=== PATIENT | female | born 1960 | race Caucasian/White ===

== ENCOUNTER → 2017-05-17 10:49 | Outpatient (CLI) | payer SELFPAY ==
[2017-05-17 14:32] LABS: Hemoglobin A1C 5.6 % (0.0-7.0)
== END ==
PROVIDERS: PCP Emergency Medicine; Visit Provider Emergency Medicine
DX: E11.9 Type 2 diabetes mellitus without complications (principal)
CPT/HCPCS: 36415; 83036

== ENCOUNTER 2025-01-29 11:25 | Outpatient (CLI) | payer MEDICARE, OTHER, SELFPAY ==
--- OUTSIDE RECORDS SUMMARY | 2024-12-03 13:00 | XMS_ITS | Encounter Summary ---
Author Organization [employer] ([place], [place], [place], [place], [place]) Address [address] [place] [address] Care Team Providers Care Ancient Art Curator Name Role Phone Unavailable Primary Care Provider Unavailabl e Reason for Visit * Consultation (Routine) - Authorized Specialty Diagnoses / Procedures Referred By Bre t Referred To Contact Physical Therapy Diagnoses Right shoulder pain Spike Avila MD [address] [facility] [address] [place] [address] Phone: tel: fax: Referral ID Status Reason Start Date Expiration Date Visits Requested Visits Authorized [id number] Authorized Specialty Services Required 10/22/2024 02/11/2025 99 99 Encounter Details Date Type Department Care Team (Late st Contact Info) Description 12/03/2024 2:00 PM EDT Treatment [facility] OP Physical Therapy [address] [place] [address] Vic Rodriguez, PT Right shoulder pain, unspecified chronicity (Primary Dx) Social History Tobacco Use Types Packs/Day Years Used Date Smoking Tobacco: Never Assessed Comments Unknown Sex and Gender Information Value Date Recorded Sex Assigned at Not on file Legal Sex Female 3:13 PM CDT Gender Identity Not on file Sexual Orientation Not on file documented as of this encounter Progress Notes * Vic Rodriguez PT - 12/03/2024 2:00 PM EDT Images from the original note were not included. Outpatient Physical Therapy Treatment Note 12/03/2024 Time In: 1352 Time Out: 1438 Komal Albert 1960 64 y.o. 1. Right shoulder pain, unspecified chronicity Referring Physician: Spike Avila MD Insurance: Payor: MEDICARE / Plan: MEDICARE PART A B / Product Type: *No Product type* / SUBJECTIVE Patient reports she has no pain currently. She also notes she is continuing to see good improvements in R shoulder function such as washing her hair and brushing her teeth without significant pain. Pain: 0/10 OBJECTIVE INTERVENTIONS Therapeutic Exercise Sets x Repetitions Weight/Resistance Cues/Comments HEP Progress Note Due: 12/17/2024 Pulleys 2'/2' Standing Wand AAROM 2 min Flex/abd/ER [x] Ball Rollouts 2'/2' Flex/abd [] Table Slides 2 min HEP Flex [x] Supine Wand AAROM 2 min ER/flex [x] Bench Press w Wand 2 min 1# Step Aways 5 x 10 sec [] Ball Walks up the Wall 2 x 5 Small blue ball [] Landmine Press 2 min Flex [] Supine Snow [place]sgood 2 x 10 [] ASSESSMENT Patient completed exercises to improve R shoulder mobility. Therex was progressed by adding supine snow angels for strengthening in the abduction plane through gravity for increased shoulder ROM. Shenoted she had increased pain at the 90 degree point and was instructed to stay below this point. She tolerated overall treatment with mild difficulty and minimal reports of increased pain. She took rest breaks throughout the session as needed due to fatigue. Will continue to progress as tolerated. Patient will continue to benefit from skilled physical therapy to improve mobility, strength and overall function. PLAN Interventions: Continue Therapeutic Exercise (03176) Prognosis: Good Patient requires follow-up: Yes Total Treatment (min): 46' Timed Treatment (min): Therapeutic Exercise (66070) 46 minutes Electronically signed: Vic Rodriguez PT 12/03/2024, 4:43 PM documented in this encounter Plan of Treatment Not on file documented as of this encounter Visit Diagnoses Diagnosis Right shoulder pain, unspecified chronicity- Primary documented in this encounter
--- OUTSIDE RECORDS SUMMARY | 2024-12-12 12:00 | XMS_ITS | Encounter Summary ---
Author Organization [employer] ([place], [place], [place], [place], [place]) Address [address] [place] [address] Care Team Providers Care Molded Candles Wicker Name Role Phone Unavailable Primary Care Provider Unavailabl e Reason for Visit * Consultation (Routine) - Authorized Specialty Diagnoses / Procedures Referred By Bre t Referred To Contact Physical Therapy Diagnoses Right shoulder pain Spike Avila MD [address] [facility] [address] [place] [address] Phone: tel: fax: Referral ID Status Reason Start Date Expiration Date Visits Requested Visits Authorized [id number] Authorized Specialty Services Required 10/22/2024 02/11/2025 99 99 Encounter Details Date Type Department Care Team (Late st Contact Info) Description 12/12/2024 1:00 PM EDT Treatment [facility] OP Physical Therapy [address] [place] [address] Vic Rodriguez, PT Right shoulder pain, unspecified [...] Progress Notes * Vic Rodriguez PT - 12/12/2024 1:00 PM EDT Images from the original note were not included. Outpatient Physical Therapy Treatment Note 12/12/2024 Time In: 1302 Time Out: 1342 Komal Albert 1960 64 y.o. 1. Right shoulder pain, unspecified chronicity Referring Physician: Spike Avila MD Insurance: Payor: MEDICARE / Plan: MEDICARE PART A B / Product Type: *No Product type* / SUBJECTIVE Patient reports she is doing well today. She goes back for a follow up with the surgeon on . Pain: 0/10 OBJECTIVE INTERVENTIONS Therapeutic Exercise Sets x Repetitions Weight/Resistance Cues/Comments HEP Progress Note Due: 12/17/2024 Pulleys 2'/2' Standing Wand AAROM 2 min Flex/abd/ER [x] Ball Rollouts 2'/2' Flex/abd [] Table Slides 2 min HEP only Flex [x] Supine Wand AAROM 2 min 1# ER/flex [x] Bench Press w Wand 2 min 1# Step Aways 5 x 10 sec [] Ball Walks up the Wall 2 x 5 Small blue ball [] Landmine Press 2 min 1# Flex [] Supine Snow [place] 2 x 10 [] ASSESSMENT Patient completed exercises to improve R shoulder mobility. Therex was progressed by adding resistance for the landmine press and for supine wand AAROM for shoulder strengthening. She did much betterwith supine snow angels this date compared to last session as these were less painful. She tolerated overall treatment with mild difficulty and minimal reports of increased pain. She took rest breaksthroughout the session as needed due to fatigue and noted her shoulder feeling achy at the end of the session. Will continue to progress as tolerated. Patient will continue to benefit from skilled physical therapy to improve mobility, strength and overall function. PLAN Interventions: Continue Therapeutic Exercise (92102) Prognosis: Good Patient requires follow-up: Yes Total Treatment (min): 40' Timed Treatment (min): Therapeutic Exercise (72079) 40 minutes Electronically signed: Vic Rodriguez PT 12/12/2024, 1:43 PM documented in this encounter Plan of Treatment Not on file documented as of this encounter Visit Diagnoses Diagnosis Right shoulder pain, unspecified chronicity- Primary documented in this encounter
--- OUTSIDE RECORDS SUMMARY | 2024-12-19 14:30 | XMS_ITS | Encounter Summary ---
Author Organization [employer] ([place], [place], [place], [place], [place]) Address [address] [place] [address] Care Team Providers Care Whip Operator Name Role Phone Unavailable Primary Care Provider Unavailabl e Reason for Visit * Consultation (Routine) - Authorized Specialty Diagnoses / Procedures Referred By Bre t Referred To Contact Physical Therapy Diagnoses Right shoulder pain Spike Avila MD [address] [facility] [address] [place] [address] Phone: tel: fax: Referral ID Status Reason Start Date Expiration Date Visits Requested Visits Authorized [id number] Authorized Specialty Services Required 10/22/2024 02/11/2025 99 99 Encounter Details Date Type Department Care Team (Late st Contact Info) Description 12/19/2024 2:30 PM EST Treatment [facility] OP Physical Therapy [address] [place] [address] Vic Rodriguez, PT Right shoulder pain, unspecified [...] Progress Notes * Vic Rodriguez PT - 12/19/2024 2:30 PM EST Images from the original note were not included. Outpatient Physical Therapy Progress Note 12/19/2024 Time In: 1435 Time Out: 1519 Komal Albert 1960 64 y.o. 1. Right shoulder pain, unspecified chronicity Referring Provider: Spike Avila MD Insurance: Payor: MEDICARE / Plan: MEDICARE PART A B / Product Type: *No Product type* / SUBJECTIVE Patient reports her shoulder is a little achy today, possibly due to lifting and moving some items at [employer] this week. She goes to the MD for a follow up next week. Pain: 5-6/10 Symptoms since onset: Improved OBJECTIVE Test/Measurements Shoulder ROM (degrees) LEFT RIGHT Flexion 156 85 *shoulder shrug Abduction 166 80 *shoulder shrug Internal Rotation T4 T10 External Rotation 74 72 *patient's AAROM is improving and is able to achieve approximately 120 degrees of flexion during supine wand exercises Strength Shoulder/Scapula LEFT RIGHT Flexion 5/5 4/5 Abduction 4+/5 4/5 External Rotation 4+/5 3/5 Internal Rotation 4+/5 4+/5 *within available ROM Functional Outcome Measure: QuickDASH: 22.73% INTERVENTIONS Therapeutic Exercise Sets x Repetitions Weight/Resistance Cues/Comments HEP Progress Note Due: 01/16/2025 Pulleys 2'/2' Wand AAROM 2 min Flex/abd/ER [x] Ball Rollouts 2'/2' Flex/abd [] Table Slides 2 min Flex [x] Supine Wand AAROM 2 min 2# Bench press/ER/flex [x] Step Aways 5 x 10 sec [] Ball Walks up the Wall 2 x 5 Small blue ball [] Landmine Press 2 min Flex [] Tband Rows -- Next session [] Shoulder Isometrics -- Next session Total Treatment (min): 44' Timed Treatment (min): Therapeutic Exercise (10156) 40 minutes ASSESSMENT Patient is making steady improvements towards PT goals. Patient's R shoulder ROM has improved to 85degrees for flexion, 80 degrees for abduction and 72 degrees for ER. Her functional reach for IR has stayed the same at T10. Her AAROM is continuing to improve as she is able to obtain approximately 120 degrees of flexion during supine wand exercises. Strength testing was performed within her available ROM, and did well with this, but is still lacking ER strength. Her QuickDASH has improved from 25% at her last progress note to 22.73% today. She reports she is continuing to see good improvements in her ability to perform her ADLs. Therex was continued from last session to improve exercise tolerance. Plan to progress interventions towards strengthening and per MD recommendation next week. Patient will continue to benefit from skilled physical therapy to improve mobility, strength and overall function. PLAN Komal Albert requires skilled physical therapy services to address the below stated problems/goals, using Therapeutic Exercise (13430), Therapeutic Activity (40498), Manual Therapy (39431), Neuromuscular Re-education (04220), and Hot/Cold Packs 1x/Day. Skilled intervention required to decrease pain,increase range of motion, increase strength, improve motor control, improve functional mobility, learn home exercise program, and return to premorbid state. Prognosis: Good Problems: Pain Decreased ROM Decreased strength Tenderness to palpation Decreased functional mobility Patient Goal: Decreased Pain Improve Mobility Improve Strength Avoid Surgery Resume ADL's w/o Symptoms Return to Prior Activity Level Learn Home Exercise Program Patient Education: Eval results/Plan of Care, Disease Process, Body mechanics, HEP, Pt/CG verbalized understanding, Pt/CG asked approp questions, Pt/CG demonstrated carry-over, and Handouts provided Nursing Home Goals: Patient will demonstrate 4/5 R shoulder strength in all planes for ability to lift wood on the farmin 12 weeks. (Not Met, Progressing: see objective above) Patient will improve R shoulder ROM to 90 degrees of flexion and abduction for improved ability to wash her hair in 12 weeks. 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 (Not Met, Progressin.73%) Patient will be independent with discharge home exercise program to improve self-care ADL's and household ADL's. (Not Met, Progressing throughout POC) Plan of Care Certification Date: 10/22/2024 - 01/14/2025 Frequency/Duration: 1x/Week for 12 weeks Electronically signed by: Vic Rodriguez PT 12/19/2024, 3:52 PM R documented in this encounter Plan of Treatment Not on file documented as of this encounter Visit Diagnoses Diagnosis Right shoulder pain, unspecified chronicity- Primary documented in this encounter
--- OUTSIDE RECORDS SUMMARY | 2024-12-23 10:15 | XMS_ITS | Encounter Summary ---
Author Organization [employer] ([place], [place], [place], [place], [place]) Address [address] [place] [address] Care Team Providers Care Printing Supplies Sales Representative Name Role Phone Unavailable Primary Care Provider Unavailabl e Reason for Visit * Consultation (Routine) - Authorized Specialty Diagnoses / Procedures Referred By Bre t Referred To Contact Physical Therapy Diagnoses Right shoulder pain Spike Avila MD [address] [facility] [address] [place] [address] Phone: tel: fax: Referral ID Status Reason Start Date Expiration Date Visits Requested Visits Authorized [id number] Authorized Specialty Services Required 10/22/2024 02/11/2025 99 99 Encounter Details Date Type Department Care Team (Late st Contact Info) Description 12/23/2024 10:15 AM EST Treatment [facility] OP Physical Therapy [address] [place] [address] Vic Rodriguez, PT Right shoulder pain, unspecified [...] Progress Notes * Vic Rodriguez PT - 12/23/2024 10:15 AM EST Images from the original note were not included. Outpatient Physical Therapy Treatment Note 12/23/2024 Time In: 1006 Time Out: 1051 Komal Albert 1960 64 y.o. 1. Right shoulder pain, unspecified chronicity Referring Physician: Spike Avila MD Insurance: Payor: MEDICARE / Plan: MEDICARE PART A B / Product Type: *No Product type* / SUBJECTIVE Patient reports her shoulder feels about the same as last time. She goes to the ortho MD today and might receive an injection. Pain: 06/21 OBJECTIVE INTERVENTIONS Therapeutic Exercise Sets x Repetitions Weight/Resistance Cues/Comments HEP Progress Note Due: 01/16/2025 Pulleys 2'/2' Wand AAROM 2 min Flex/abd/ER [x] Ball Rollouts 2'/2' Flex/abd [] Table Slides 2 min Flex [x] Supine Wand AAROM 2 min 2# Bench press/ER/flex *increase resistance for bench next session [x] Step Aways 5 x 10 sec [] Ball Walks up the Wall 2 x 5 Small blue ball [] Landmine Press 2 min Flex *add resistance next session [] Tband Rows 2 x 10 RTB [] Shoulder Isometrics -- Next session ASSESSMENT Patient completed exercises to improve R shoulder mobility. Therex was progressed by adding tband rows for scapular strengthening and she was provided a tband to continue with his at home. She statedthe 2# weight for the bench press is feeling much easier and feels she could increase resistance next time. She took rest breaks throughout the session as needed due to fatigue and slight increases in soreness. Will continue to progress as tolerated and per MD recommendation at her visit today. Patient will continue to benefit from skilled physical therapy to improve mobility, strength and overall function. PLAN Interventions: Continue Therapeutic Exercise (03889) Prognosis: Good Patient requires follow-up: Yes Total Treatment (min): 45' Timed Treatment (min): Therapeutic Exercise (81094) 8 minutes Electronically signed: Vic Rodriguez PT 12/23/2024, 11:05 AM ISTRY LABORATORY TECHNICIAN documented in this encounter Plan of Treatment Not on file documented as of this encounter Visit Diagnoses Diagnosis Right shoulder pain, unspecified chronicity- Primary documented in this encounter
[2025-01-29 18:09] LABS: Alanine Aminotransferase 28 U/L (12-78); Albumin Level 4.2 g/dl (3.5-5.0); Albumin/Globulin Ratio 1.5 (1.1-1.8); Alkaline Phosphatase 56 U/L (38-126); Anion Gap 13.1 mEq/L (5-15); Aspartate Amino Transferase 28 U/L (14-36); Bilirubin,Total 0.7 mg/dl (0.2-1.3); Blood Urea Nitrogen 31 mg/dl (7-17); Calcium 9.6 mg/dl (8.4-10.2); Carbon Dioxide 21 mmol/L (22.0-30.0); Chloride 108 mmol/L (98-107); Cholesterol 174 mg/dl (140-200); Creatinine,Serum 0.80 mg/dl (0.52-1.04); Estimated Glomerular Filt Rate 72 ml/min (>60); GFR (African American) 87 ML/MIN (>60); Globulin 2.8 g/dL (1.3-3.2); Glucose 147 mg/dl (74-100); HDL Cholesterol 63 mg/dl (40-60); Potassium 5.1 mmoL/L (3.5-5.1); Sodium 137 mmol/L (136-145); Total Protein,Serum 7.0 g/dl (6.3-8.2); Triglycerides 150 mg/dl (30-150)
[2025-01-29 18:31] LABS: 25-OH Vitamin D, Total 25.4 ng/mL (30-100)
[2025-01-29 18:43] LABS: Thyroid Stimulating Hormone 2.31 uIU/mL (0.465-4.68)
[2025-01-29 19:54] LABS: Iron 81 ug/dL (37-170)
[2025-01-29 20:03] LABS: Total Iron Binding Capacity 275 ug/dL (265-497)
[2025-01-29 20:38] LABS: Ferritin 306 ng/ml (11.1-264)
--- OUTSIDE RECORDS SUMMARY | 2025-01-30 09:33 | XMS_ITS | Clinical Summary ---
Author Organization [facility] Address [address] [place] [address] Care Team Providers Care Substation Operator Automatic Name Role Phone Jannet Chacko APRN Primary Care Provid er Social History Tobacco Use Types Packs/Day Years Used Date Smoking Tobacco: Never Assessed Comments Unknown Sex and Gender Information Value Date Recorded Sex Assigned at Not on file Legal Sex Female 10:51 AM EDT Gender Identity Not on file Sexual Orientation Not on file Plan of Treatment Health Maintenance Due Date Last Done Comments ANNUAL PHYSICAL 1960 DXA SCAN 1960 HEPATITIS C SCREENING 1960 MAMMOGRAM 1999 COLOGUARD 08/13/2004 COLON CANCER SCREENING 5 YEA R SIGMOIDOSCOPY 08/13/2004 COLONOSCOPY 08/13/2004 COLORECTAL CANCER SCREENING 08/13/2004 CT COLONOGRAPHY 08/13/2004 FECAL OCCULT BLOOD TEST 08/13/2004 FIT Testing (1 year) 08/13/2004 TDAP/TD VACCINES (1 - Tdap) 08/17/2005 08/16/2005 Pneumococcal Vaccine 50+ (1 of 1 - PCV) 08/13/2009 ZOSTER VACCINE (1 of 2) 08/13/2009 INFLUENZA VACCINE 09/12/2024 12/16/2021 COVID-19 Vaccine ( season) 2024 02/25/2021, 08/12/2020, 07/22/2020 Insurance MEDICARE A & B Member Subscriber Plan / Payer (Ef fective 2024-Present) Name:Komal Albert Member ID:[id number] Relation to Subscriber:Self Name:Komal Albert Subscriber ID:[id number] Payer ID:[id number] Group ID:Not on file Type:Not on file Address: [facility] [id number] Care Teams Substation Operator Automatic Relationship Specialty Start Date End Date Jannet Chcako APRN [address] [place] [address] PCP - General Family Medicine 08/18/24
--- OUTSIDE RECORDS SUMMARY | 2025-01-30 09:33 | XMS_ITS ---
Laboratory report Created on: January 13, 2025 SYEDRADHA : 1960 Sex: Female Author Name JODI CHEN NNSurendra Organization Unknown PROBLEMS Problems List Code Description RESULTS Laboratory Orders Date Order Code Test 2024-06-24 [id number] TSH 2024-06-24 [id number] IRON AND TIBC 2024-06-24 [id number] CBC/DIFF AMBIGUO US DEFAULT 2024-06-24 [id number] COMP. METABOLIC PANEL (14) 2024-06-24 [id number] VITAMIN D, 25-HY DROXY 2024-06-24 210808 LIPID PANEL Laboratory Results Date LOINC Test Value Unit Reference Range Interpre tation 2024-06-24 30088-9 TSH 2.59 UIU/ML 0.450-4.500 2024-06-24 2500-7 IRON BINDCAP(TIBC) 306 UG/DL 064-006 2233-05-13 2501-5 UIBC 232 UG/DL 055-843 4939-05-13 2498-4 IRON 74 UG/DL 27-139 2024-06-24 2502-3 IRON SATURATION 24 % 15-55 2024-06-24 6690-2 WBC 6.8 X10E3/UL 3.4-10.8 2024-06-24 789-8 RBC 4.57 X10E6/UL 3.77-5.28 2024-06-24 718-7 HEMOGLOBIN 12.9 G/DL 11.1-15.9 2024-06-24 4544-3 HEMATOCRIT 41.2 % 34.0-46.6 2024-06-24 787-2 MCV 90 FL 79-97 2024-06-24 785-6 MCH 28.2 PG 26.6-33.0 2024-06-24 786-4 MCHC 31.3 G/DL 31.5-35.7 L 2024-06-24 788-0 RDW 12.8 % 11.7-15.4 2024-06-24 777-3 PLATELETS 283 X10E3/UL 979-288 2248-05-13 770-8 NEUTROPHILS 52 % 2024-06-24 736-9 LYMPHS 39 % 2024-06-24 5905-5 MONOCYTES 7 % 2024-06-24 713-8 EOS 1 % 2024-06-24 706-2 BASOS 1 % 2024-06-24 751-8 NEUTROPHILS (ABSOLUTE) 3.5 X10E3/UL 1.4-7.0 2024-06-24 731-0 LYMPHS (ABSOLUTE) 2.6 X10E3/UL 0.7-3.1 2024-06-24 742-7 MONOCYTES(ABSOLUTE) .4 X10E3/UL 0.1-0.9 2024-06-24 711-2 EOS (ABSOLUTE) .1 X10E3/UL 0.0-0.4 2024-06-24 704-7 BASO (ABSOLUTE) .1 X10E3/UL 0.0-0.2 2024-06-24 47297-1 IMMATURE GRANULOCYTES 0 % 2024-06-24 37973-9 IMMATURE GRANS (ABS) 0 X10E3/UL 0.0-0.1 2024-06-24 2345-7 GLUCOSE 172 MG/DL 70-99 H 2024-06-24 3094-0 BUN 24 MG/DL 8-27 2024-06-24 2160-0 CREATININE .95 MG/DL 0.57-1.00 2024-06-24 83173-5 EGFR 67 ML/MIN/1.7 3 >59 2024-06-24 3097-3 BUN/CREATININE RATIO 05 02-2024-06-24 2951-2 SODIUM 138 MMOL/L 959-246 0118-05-13 2823-3 POTASSIUM 4.4 MMOL/L 3.5-5.2 2024-06-24 2075-0 CHLORIDE 101 MMOL/L 96-106 2024-06-24 2028-9 CARBON DIOXIDE, TOTAL 23 MMOL/L 2024-06-24 08543-0 CALCIUM 9.7 MG/DL 8.7-10.3 2024-06-24 2885-2 PROTEIN, TOTAL 6.9 G/DL 6.0-8.5 2024-06-24 1751-7 ALBUMIN 4.3 G/DL 3.9-4.9 2024-06-24 27830-1 GLOBULIN, TOTAL 2.6 G/DL 1.5-4.5 2024-06-24 1975-2 BILIRUBIN, TOTAL .7 MG/DL 0.0-1.2 2024-06-24 6768-6 ALKALINE PHOSPHATASE 59 IU/L 44-121 2024-06-24 1920-8 AST (SGOT) 18 IU/L 0-40 2024-06-24 1742-6 ALT (SGPT) 27 IU/L 0-32 2024-06-24 14220-0 VITAMIN D, 25-HYDROXY 35.3 NG/ML 30.0-100.0 2024-06-24 2093-3 CHOLESTEROL, TOTAL 111 MG/DL 498-633 3630-05-13 2571-8 TRIGLYCERIDES 135 MG/DL 0-149 2024-06-245-9 HDL CHOLESTEROL 52 MG/DL >39 2024-06-24 55867-1 VLDL CHOLESTEROL CRESENCIO 23 MG/DL 5-40 2024-06-24 81852-1 LDL CHOL CALC ([facility]) 36 MG/DL 0-99
--- OUTSIDE RECORDS SUMMARY | 2025-01-30 09:33 | XMS_ITS | Clinical Summary ---
Author Organization [employer] ([place], [place], [place], [place], [place]) Address [address] [place] [address] Care Team Providers Care Chip Applying Machine Tender Name Role Phone Unavailable Primary Care Provider Unavailabl e Encounters Date Type Department Care Team Description 12/23/2024 10:15 AM EST Treatment [facility] OP Physical Therapy [address] [place] [phone] Jennifer Vic, PT Right shoulder pain, unspecified chronicity (Primary Dx) 12/19/2024 2:30 PM EST Treatment [facility] OP Physical Therapy [address] [place] [phone] Frowaldoe, Vic, PT Right shoulder pain, unspecified chronicity (Primary Dx) 12/19/2024 Travel 12/12/2024 1:00 PM EDT Treatment [facility] OP Physical Therapy [address] [place] [phone] Frowaldoe, Vic, PT Right shoulder pain, unspecified chronicity (Primary Dx) 12/03/2024 2:00 PM EDT Treatment [facility] OP Physical Therapy [address] [place] [phone] Frowaldoe, Vic, PT Right shoulder pain, unspecified chronicity (Primary Dx) 11/26/2024 11:00 AM EDT Treatment [facility] OP Physical Therapy [address] [place] [phone] Frowaldoe, Vic, PT Right shoulder pain, unspecified chronicity (Primary Dx) 11/19/2024 2:45 PM EDT Treatment [facility] OP Physical Therapy [address] [place] [phone] Vic Rodriguez, PT Right shoulder pain, unspecified chronicity (Primary Dx) 11/19/2024 Travel 11/12/2024 3:15 PM EDT Treatment [facility] OP Physical Therapy [address] [place] [phone] Vic Rodriguez, PT Right shoulder pain, unspecified chronicity (Primary Dx) 11/12/2024 Travel 11/05/2024 2:45 PM EDT Treatment [facility] OP Physical Therapy [address] [place] [phone] Vic Rodriguez, PT Right shoulder pain, unspecified chronicity (Primary Dx) 11/05/2024 Travel from Last 3 Months Social History Tobacco Use Types Packs/Day Years Used Date Smoking Tobacco: Never Assessed Comments Unknown Sex and Gender Information Value Date Recorded Sex Assigned at Not on file Legal Sex Female 3:13 PM CDT Gender Identity Not on file Sexual Orientation Not on file Plan of Treatment Health Maintenance Due Date Last Done Comments CT Colonography 1960 Colonoscopy 1959 Colorectal Cancer Screening 1960 DXA SCAN 1960 FOBT/FIT 1959 Fit-DNA (Cologuard) 1960 Sigmoidoscopy 1959 Depression Screening (12+) 1971 Tobacco Cessation Counseling and Screening (12+) 1971 HIV Screening 08/13/1974 Hepatitis C Screening 08/13/1977 Pap Smear 08/13/1980 Breast Cancer Screening 1999 Lipid Panel 08/13/2004 Pneumococcal 50+ years (1 of 1 - PCV) 08/13/2009 Shingles Vaccine (Zoster) (1 of 2) 08/13/2009 DTAP/TDAP/TD VACCINES (2 - T d or Tdap) 08/17/2015 08/16/2005 Falls Risk Screening 02/13/2024 COVID-19 VACCINE ( season) 2024 02/25/2021, 08/12/2020, 07/22/2020 Influenza Vaccine (#1) 2024 Medicare IPPE ([facility]) [id number] 10/13/2024 Respiratory Syncytial Virus (RSV) Adult or (1 - 1-dose 75+ series) 08/13/2034 Insurance MEDICARE PART A B
--- OUTSIDE RECORDS SUMMARY | 2025-01-30 09:33 | XMS_ITS | Encounter Summary ---
Author Organization [employer] ([place], [place], [place], [place], [place]) Address [address] [place] [address] Care Team Providers Care Knockout Worker Name Role Phone Unavailable Primary Care Provider Unavailabl e Encounter Details Date Type Department Care Team (Latest Contact Info) Description 12/19/2024 Travel Social History Tobacco Use Types Packs/Day Years Used Date Smoking Tobacco: Never Assessed Comments Unknown Sex and Gender Information Value Date Recorded Sex Assigned at Not on file Legal Sex Female 3:13 PM CDT Gender Identity Not on file Sexual Orientation Not on file documented as of this encounter Plan of Treatment Not on file documented as of this encounter Visit Diagnoses Not on filedocumented in this encounter
--- OUTSIDE RECORDS SUMMARY | 2025-01-30 09:33 | XMS_ITS ---
Laboratory report Created on: January 13, 2025 SYED RADHA : 1960 Sex: Female Author Name JODI CHEN NNSurendra Organization Unknown PROBLEMS Problems List Code Description I10 RESULTS Laboratory Orders Date Order Code Test 2023-07-16 070263 CBC/DIFF AMBIGUO US DEFAULT 2023-07-16 [id number] COMP. METABOLIC PANEL (14) 2023-07-16 305388 LIPID PANEL 2023-07-16 [id number] IRON AND TIBC 2023-07-16 [id number] THYROID PANEL 2023-07-16 189957 HEMOGLOBIN A1C 2023-07-16 856809 VITAMIN D, 25-HY DROXY Laboratory Results Date LOINC Test Value Unit Reference Range Interpre tation 2023-07-16 6690-2 WBC 7.6 X10E3/UL 3.4-10.8 2023-07-16 789-8 RBC 4.97 X10E6/UL 3.77-5.28 2023-07-16 718-7 HEMOGLOBIN 13.7 G/DL 11.1-15.9 2023-07-16 4544-3 HEMATOCRIT 43.2 % 34.0-46.6 2023-07-16 787-2 MCV 87 FL 79-97 2023-07-16 785-6 MCH 27.6 PG 26.6-33.0 2023-07-16 786-4 MCHC 31.7 G/DL 31.5-35.7 2023-07-16 788-0 RDW 12.4 % 11.7-15.4 2023-07-16 777-3 PLATELETS 283 X10E3/UL 545-227 5231-06-03 770-8 NEUTROPHILS 57 % 2023-07-16 736-9 LYMPHS 35 % 2023-07-16 5905-5 MONOCYTES 6 % 2023-07-16 713-8 EOS 1 % 2023-07-16 706-2 BASOS 1 % 2023-07-16 751-8 NEUTROPHILS (ABSOLUTE) 4.3 X10E3/UL 1.4-7.0 2023-07-16 731-0 LYMPHS (ABSOLUTE) 2.7 X10E3/UL 0.7-3.1 2023-07-16 742-7 MONOCYTES(ABSOLUTE) .5 X10E3/UL 0.1-0.9 2023-07-16 711-2 EOS (ABSOLUTE) .1 X10E3/UL 0.0-0.4 2023-07-16 704-7 BASO (ABSOLUTE) .1 X10E3/UL 0.0-0.2 2023-07-16 97578-7 IMMATURE GRANULOCYTES 0 % 2023-07-16 30403-4 IMMATURE GRANS (ABS) 0 X10E3/UL 0.0-0.1 2023-07-16 2345-7 GLUCOSE 177 MG/DL 70-99 H 2023-07-16 3094-0 BUN 18 MG/DL 8-27 2023-07-16 2160-0 CREATININE .94 MG/DL 0.57-1.00 2023-07-16 26045-2 EGFR 68 ML/MIN/1.7 3 >59 2023-07-16 3097-3 BUN/CREATININE RATIO 19 12-28 2023-07-16 2951-2 SODIUM 140 MMOL/L 647-131 6801-06-03 2823-3 POTASSIUM 4.6 MMOL/L 3.5-5.2 2023-07-16 2075-0 CHLORIDE 102 MMOL/L 96-106 2023-07-16 2028-9 CARBON DIOXIDE, TOTAL 23 MMOL/L 20-29 2023-07-16 00045-0 CALCIUM 9.8 MG/DL 8.7-10.3 2023-07-16 2885-2 PROTEIN, TOTAL 7.3 G/DL 6.0-8.5 2023-07-16 1751-7 ALBUMIN 4.2 G/DL 3.9-4.9 2023-07-16 54618-5 GLOBULIN, TOTAL 3.1 G/DL 1.5-4.5 2023-07-16 1759-0 A/G RATIO 1.4 1.2-2.2 2023-07-16 1975-2 BILIRUBIN, TOTAL .5 MG/DL 0.0-1.2 2023-07-16 6768-6 ALKALINE PHOSPHATASE 63 IU/L 44-121 2023-07-16 1920-8 AST (SGOT) 13 IU/L 0-40 2023-07-16 1742-6 ALT (SGPT) 21 IU/L 0-32 2023-07-16 2093-3 CHOLESTEROL, TOTAL 192 MG/DL 641-452 8990-06-03 2571-8 TRIGLYCERIDES 147 MG/DL 0-149 2023-07-16 2085-9 HDL CHOLESTEROL 52 MG/DL >39 2023-07-16 89505-9 VLDL CHOLESTEROL CRESENCIO 26 MG/DL 5-40 2023-07-16 57114-5 LDL CHOL CALC (NIH) 114 MG/DL 0-99 H 2023-07-16 2500-7 IRON BINDCAP(TIBC) 293 UG/DL 508-509 6613-06-03 2501-5 UIBC 226 UG/DL 915-212 9283-06-03 2498-4 IRON 67 UG/DL 27-139 2023-07-16 2502-3 IRON SATURATION 23 % 15-55 2023-07-16 3026-2 THYROXINE (T4) 7.5 UG/DL 4.5-12.0 2023-07-16 3050-2 T3 UPTAKE 27 % 24-39 2023-07-16 60369-1 FREE THYROXINE INDEX 2 1.2-4.9 2023-07-16 4548-4 HEMOGLOBIN A1C 9.9 % 4.8-5.6 H 2023-07-16 54132-5 VITAMIN D, 25-HYDROXY 26.5 NG/ML 30.0-100.0 L
--- OUTSIDE RECORDS SUMMARY | 2025-01-30 09:33 | XMS_ITS | Referral Summary ---
Author Organization [id number] ([place], [place], [place], [place], [place]) Address [address] [place] [address] Care Team Providers Care Resaw Feeder Name Role Phone Unavailable Primary Care Provider Unavailabl e Encounters Date Type Department Care Team Description 12/23/2024 10:15 AM EST Treatment [facility] [address] [place] [phone] Vic Rodriguez, PT Right shoulder pain, unspecified chronicity (Primary Dx) 12/19/2024 Travel 12/19/2024 2:30 PM EST Treatment [facility] [address] [place] [phone] Vic Rodriguez, PT Right shoulder pain, unspecified chronicity (Primary Dx) 12/12/2024 1:00 PM EDT Treatment [facility] [address] [place] [phone] Vic Rodriguez, PT Right shoulder pain, unspecified chronicity (Primary Dx) 12/03/2024 2:00 PM EDT Treatment [facility] [address] [place] [phone] FroVic campbell, PT Right shoulder pain, unspecified chronicity (Primary Dx) 11/26/2024 11:00 AM EDT Treatment [facility] [address] [place] [phone] FroVic campbell, PT Right shoulder pain, unspecified chronicity (Primary Dx) 11/19/2024 Travel 11/19/2024 2:45 PM EDT Treatment [facility] [address] [place] [phone] Vic Rodriguez, PT Right shoulder pain, unspecified chronicity (Primary Dx) 11/12/2024 Travel 11/12/2024 3:15 PM EDT Treatment [facility] [address] [place] [phone] Vic Rodriguez, PT Right shoulder pain, unspecified chronicity (Primary Dx) 11/05/2024 Travel 11/05/2024 2:45 PM EDT Treatment [facility] [address] [place] [phone] Vic Rodriguez, PT Right shoulder pain, unspecified chronicity (Primary Dx) from Last 3 Months Social History Tobacco Use Types Packs/Day Years Used Date Smoking Tobacco: Never Assessed Comments Unknown Sex and Gender Information Value Date Recorded Sex Assigned at Not on file Legal Sex Female 3:13 PM CDT Gender Identity Not on file Sexual Orientation Not on file Plan of Treatment Not on file Insurance [place] [address]
== END 2025-01-29 23:59 | disposition home or self-care (01) ==
LOC: LAB.DROPOF 01-30 09:29
PROVIDERS: PCP Nurse Practitioner Family; Visit Provider Nurse Practitioner Family
DX: E55.9 Vitamin D deficiency, unspecified (principal); Z11.4 Encounter for screening for human immunodeficiency virus [HIV]; E11.9 Type 2 diabetes mellitus without complications; D50.9 Iron deficiency anemia, unspecified; I10 Essential (primary) hypertension
CPT/HCPCS: 80053; 80061; 82306; 82728; 83540; 83550; 84443; 87389